=== PATIENT | female | born 1985 | race Caucasian/White ===

== ENCOUNTER 2018-09-29 08:01 | Outpatient (CLI) | payer OTHER ==
[2018-09-29 12:57] LABS: BASOPHILS # (AUTO) 0.1 10^3/uL (0.0-0.1); BASOPHILS % (AUTO) 0.7 %; EOSINOPHILS # (AUTO) 0.5 10^3/uL (0.0-0.7); EOSINOPHILS % (AUTO) 5.1 %; HGB - HEMOGLOBIN 11.4 g/dL (12.0-16.0); LYMPHOCYTES # (AUTO) 1.7 10^3/uL (1.5-3.5); LYMPHOCYTES % (AUTO) 17.5 %; MEAN CORPUSCULAR HEMOGLOBIN 26.6 pg (27.0-31.0); MEAN CORPUSCULAR HGB CONC 32.7 g/dL (32.0-36.0); MEAN CORPUSCULAR VOLUME 81.6 fL (81.0-99.0); MEAN PLATELET VOLUME 8.3 fL (7.9-10.8); MONOCYTES # (AUTO) 0.5 10^3/uL (0.0-1.0); MONOCYTES % (AUTO) 4.6 %; NEUTROPHILS # (AUTO) 7.2 10^3/uL (1.5-6.6); NEUTROPHILS % (AUTO) 72.1 %; PLT - PLATELET COUNT 439 10^3/uL (130-450); RED BLOOD COUNT 4.27 10^6/uL (4.20-5.40); RED CELL DISTRIBUTION WIDTH 15.6 % (12.0-15.0)
[2018-09-29 13:48] LABS: HB2 TOTAL 11.6 g/dL; HEMOGLOBIN A1C 0.49 g/dL
[2018-09-29 14:42] LABS: ALBUMIN 3.9 g/dL (3.2-5.5); ALBUMIN/GLOBULIN RATIO 1.1 (1.0-2.2); BILIRUBIN,TOTAL 0.7 mg/dL (0.2-1.0); CALCIUM 8.7 mg/dL (8.5-10.3); CREATININE 0.7 mg/dL (0.4-1.0); TOTAL PROTEIN 7.5 g/dL (6.7-8.2)
== END 2018-09-29 23:59 | disposition home or self-care (01) ==
LOC: LAB.WCP 08:01
PROVIDERS: ATTEND Family Medicine
DX: E28.2 Polycystic ovarian syndrome (principal)
CPT/HCPCS: 36415; 80053; 83036; 84443; 84702; 85025

== ENCOUNTER 2020-03-16 16:35 | Outpatient (CLI) | payer OTHER ==
--- NOTE | 2020-03-16 18:47 | Ultrasound Report ---
Reason: PCOS Procedure Date: 03/16/2020 Accession Number: [id number] / [id number] Procedure: US - Pelvic w/Transvaginal CPT Code: Final Report FULL RESULT: PROCEDURE: Pelvic w/Transvaginal INDICATIONS: PCOS TECHNIQUE: Real-time scanning was performed of the pelvic organs, with image documentation. Additional endovaginal scanning was necessary due to incomplete visualization of the adnexal and endometrial structures by transabdominal scanning. COMPARISON: None. FINDINGS: Transabdominal scanning: Limited scanning through the kidneys shows no hydronephrosis. Right kidney echogenic focus measuring 6 mm. No pathologic free abdominal or pelvic fluid. Endovaginal scanning: Uterus: Uterus is retroverted and normal in size at 8.4 x 4.4 x 4.1 cm. The endometrium measures 6-8 mm in combined thickness. Ovaries: Multiple (greater than or equal to 12) small peripheral follicles in both ovaries. Right ovary anechoic cysts measuring up to 3.6 cm. Right ovary measures 7.2 x 7 x 4.7 cm. Left ovary measures 3.1 x 2.8 x 2.7 cm. IMPRESSION: 1. Multiple small peripheral ovarian follicles bilaterally. Findings most likely represent PCOS. 2. Small simple appearing right ovarian cysts. No free fluid. 3. Uterus and endometrium are within normal limits. 4. Nonobstructing right kidney stone. Reviewed by: Luciano Ruiz MD on 03/16/2020 6:46 PM PDT Approved by: Luciano Ruiz MD on 03/16/2020 6:46 PM PDT Station ID: [id number]
== END 2020-03-16 16:36 | disposition home or self-care (01) ==
LOC: DI 16:35
PROVIDERS: ATTEND Obstetrics & Gynecology
DX: E28.2 Polycystic ovarian syndrome (principal); N92.6 Irregular menstruation, unspecified; N20.0 Calculus of kidney
CPT/HCPCS: 76830; 76856

== ENCOUNTER 2020-07-12 08:05 | Outpatient (CLI) | payer OTHER ==
[2020-07-12 11:51] LABS: BASOPHILS # (AUTO) 0.1 10^3/uL (0.0-0.1); EOSINOPHILS # (AUTO) 0.5 10^3/uL (0.0-0.7); EOSINOPHILS % (AUTO) 4.3 %; HGB - HEMOGLOBIN 12.5 g/dL (12.0-16.0); LYMPHOCYTES # (AUTO) 2.7 10^3/uL (1.5-3.5); MEAN CORPUSCULAR HEMOGLOBIN 26.5 pg (27.0-31.0); MEAN CORPUSCULAR HGB CONC 31.1 g/dL (32.0-36.0); MEAN CORPUSCULAR VOLUME 85.4 fL (81.0-99.0); MEAN PLATELET VOLUME 10.8 fL (7.9-10.8); MONOCYTES # (AUTO) 0.8 10^3/uL (0.0-1.0); MONOCYTES % (AUTO) 6.2 %; NEUTROPHILS # (AUTO) 8.2 10^3/uL (1.5-6.6); NEUTROPHILS % (AUTO) 65.9 %; PLT - PLATELET COUNT 472 10^3/uL (130-450); RED BLOOD COUNT 4.71 10^6/uL (4.20-5.40); RED CELL DISTRIBUTION WIDTH 14.9 % (12.0-15.0); WHITE BLOOD COUNT 12.4 x10^3/uL (4.8-10.8)
[2020-07-12 12:13] LABS: HCG,QUALITATIVE BLOOD NEGATIVE
[2020-07-12 12:18] LABS: ALBUMIN 4.1 g/dL (3.2-5.5); ALBUMIN/GLOBULIN RATIO 1.1 (1.0-2.2); BILIRUBIN,TOTAL 0.9 mg/dL (0.2-1.0); CALCIUM 9.2 mg/dL (8.5-10.3); CREATININE 0.8 mg/dL (0.4-1.0); TOTAL PROTEIN 7.7 g/dL (6.7-8.2)
[2020-07-14 07:49] LABS: HEMOGLOBIN A1c% 10.6 % (4.27-6.07)
== END 2020-07-12 23:59 | disposition home or self-care (01) ==
LOC: LAB.WCP 08:05
PROVIDERS: ATTEND Family Medicine
DX: R10.32 Left lower quadrant pain (principal); E11.9 Type 2 diabetes mellitus without complications
CPT/HCPCS: 36415; 80053; 83036; 83690; 84703; 85025

== ENCOUNTER 2020-07-15 12:56 | Outpatient (CLI) | payer OTHER ==
[2020-07-15] MEDS ORDERED: IOVERSOL 320 50 ML VIAL ONE (13:11)
[2020-07-15] MEDS ORDERED: IOVERSOL 320 100 ML VIAL IVP ONE ×2 (13:11→15:39)
[2020-07-15] MEDS ORDERED: IOVERSOL 320 50 ML VIAL PO ONE (15:40)
--- NOTE | 2020-07-15 17:59 | CT Report ---
PROCEDURE: Abdomen/Pelvis W INDICATIONS: ABD PAIN, LLQ CONTRAST: IV CONTRAST: Optiray 320 ml: 100 PO CONTRAST: Optiray 320 ml50 TECHNIQUE: After the administration of 100 mL Optiray 320 intravenous contrast and oral contrast, 5 mm thick sec tions acquired from the diaphragms to the symphysis. 5 mm thick coronal and sagittal reformats were acquired. For radiation dose reduction, the following was used: automated exposure control, adjustm ent of mA and/or kV according to patient size. COMPARISON: None. FINDINGS: Image quality: Excellent. ABDOMEN: Lung bases: Lung bases are clear. Heart size is normal. Solid organs: Diffuse hypoattenuation of the liver. Gallbladder is unremarkable Biliary system is n on dilated. Pancreas enhances normally. No adrenal nodules. Kidneys demonstrate normal size and en hancement, without hydronephrosis. Peritoneum and bowel: Bowel loops demonstrate normal wall thickness and caliber. No evidence of acu te appendicitis. No free fluid or air. Nodes and vessels: No retroperitoneal or mesenteric adenopathy by size criteria. Aorta and inferior vena cava are normal in size. Miscellaneous: No ventral hernias. PELVIS: Genitourinary: Bladder wall thickness is normal. Retroverted uterus. Heterogeneous appearance of th e cervical region. 2.6 cm simple appearing right ovarian cyst, subjacent to a 3.2 cm simple appearing cyst in the right ovary. Miscellaneous: No inguinal hernias or adenopathy. Bones: No suspicious bony lesions. No vertebral body compression fractures. IMPRESSION: No acute intra-abdominal abnormality Heterogeneous appearance of the cervical region. Recommend gynecologic evaluation to exclude neoplast ic process. Marked hepatic steatosis Two simple appearing right ovarian cysts measuring up to 3.2 cm. Reviewed by: Aleksandr Short on 07/15/2020 4:57 PM [facility]IN[facility] Approved by: Aleksandr Short on 07/15/2020 4:57 PM AMIN[facility] Station ID: [id number]
== END 2020-07-15 12:57 | disposition home or self-care (01) ==
LOC: DI 12:56
PROVIDERS: ATTEND Family Medicine
DX: R10.32 Left lower quadrant pain (principal); K76.6 Portal hypertension; N83.201 Unspecified ovarian cyst, right side
CPT/HCPCS: 74177; Q9967